=== PATIENT | female | born 1975 | race Caucasian/White ===

== ENCOUNTER 2017-12-21 21:06 | Emergency (ER) | payer MEDICAID, MEDICARE, OTHER ==
[~2017-12-21] VITALS: Ht 157.5 cm; Wt 91.3 kg
[2017-12-21] MEDS ORDERED: LORazepam 1MG TABLET ONE (21:40)
[2017-12-21] MEDS ORDERED: DIPH,PERTUSS(ACELL),TET VAC/PF 0.5 ML IM-VACC ONE ×2 (21:41→22:00)
[2017-12-21 21:48] LABS: BASOPHILS # (AUTO) 0.08 x10^3/uL (0-0.1); BASOPHILS % (AUTO) 1 % (0-1); EOSINOPHILS # (AUTO) 0.19 x10^3/uL (0-0.4); EOSINOPHILS % (AUTO) 2 % (1-7); LYMPHOCYTES # (AUTO) 2.12 x10^3/uL (1-3.4); LYMPHOCYTES % (AUTO) 24 % (22-44); MD NO; MEAN CORPUSCULAR HEMOGLOBIN 34.5 pg (27.0-34.8); MEAN CORPUSCULAR VOLUME 101.6 fL (80-100); MEAN PLATELET VOLUME 10.5 fL (7.4-10.4); MONOCYTES % (AUTO) 12 % (2-9); NEUTROPHILS # (AUTO) 5.29 x10^3/uL (1.8-6.8); NEUTROPHILS % (AUTO) 61 % (42-75); PLATELET COUNT 136 x10^3/uL (130-400); RED BLOOD COUNT 4.23 x10^6/uL (3.82-5.3); RED CELL DISTRIBUTION WIDTH 13.7 % (9.6-15.2)
[2017-12-21 21:54] VITALS: BP 112/75
[2017-12-21 22:00] LABS: ANION GAP 5 mmol/L (5-15); CALCIUM 8.2 mg/dL (8.5-10.1); CHLORIDE 113 mmol/L (98-107)
[2017-12-21] MEDS ORDERED: LORazepam 1MG TABLET PO ONE (22:00)
[2017-12-21 22:01] LABS: ALBUMIN 2.7 g/dL (3.4-5.0)
== END 2017-12-21 23:05 | disposition home or self-care (01) ==
LOC: ED 23:00
DX: S06.0X9A Concussion with loss of consciousness of unspecified duration, initial encounter (principal); S01.111A Laceration without foreign body of right eyelid and periocular area, initial encounter; G40.909 Epilepsy, unspecified, not intractable, without status epilepticus; W19.XXXA Unspecified fall, initial encounter; Y93.89 Activity, other specified; Y92.89 Other specified places as the place of occurrence of the external cause; Y99.8 Other external cause status
CPT/HCPCS: 12011; 36415; 70450; 80048; 80307; 82040; 84703; 85025; 90471; 90715; 93005; 99285

== ENCOUNTER 2018-06-03 17:20 | Emergency (ER) | payer MEDICAID, MEDICARE ==
[~2018-06-03] VITALS: Ht 157.5 cm; Wt 100.0 kg
[2018-06-03 18:36] VITALS: BP 118/72
== END 2018-06-03 18:48 | disposition home or self-care (01) ==
LOC: ED 18:25
DX: S00.93XA Contusion of unspecified part of head, initial encounter (principal); G40.909 Epilepsy, unspecified, not intractable, without status epilepticus; X58.XXXA Exposure to other specified factors, initial encounter; Y93.89 Activity, other specified; Y92.89 Other specified places as the place of occurrence of the external cause; Y99.8 Other external cause status
CPT/HCPCS: 70450; 99284

== ENCOUNTER 2019-02-04 14:46 | Emergency (ER) | payer MEDICARE ==
[~2019-02-04] VITALS: Ht 160 cm; Wt 114.0 kg
[2019-02-04] MEDS ORDERED: DIVA500T2 PO (14:58)
--- NOTE | 2019-02-04 15:03 | NUR ---
BIB EMS FOR SEIZURE IN THE SHOWER WITNESSED BY BROTHER WHO IS PATIENTS TONG HOOKER, "5 MIN OFF AND ON." EMS GAVE 2 L NS. IV ESTABLISHED IN FIELD. PT HAS HISTORY OF SEIZURES. LEFT BKA.
--- NOTE | 2019-02-04 15:22 | NUR ---
Nadir Moore [phone] will come molded goods spot picker patient if needed.
[2019-02-04 15:39] LABS: ALBUMIN 3.1 g/dL (3.4-5.0); ANION GAP 7 mmol/L (5-15); BASOPHILS # (AUTO) 0.05 x10^3/uL (0-0.1); BASOPHILS % (AUTO) 1 % (0-1); CALCIUM 8.7 mg/dL (8.5-10.1); CHLORIDE 113 mmol/L (98-107); CREATININE 0.95 mg/dL (0.55-1.02); EOSINOPHILS # (AUTO) 0.43 x10^3/uL (0-0.4); EOSINOPHILS % (AUTO) 5 % (1-7); LYMPHOCYTES # (AUTO) 1.84 x10^3/uL (1-3.4); LYMPHOCYTES % (AUTO) 21 % (22-44); MD NO; MEAN CORPUSCULAR HEMOGLOBIN 31.4 pg (27.0-34.8); MEAN CORPUSCULAR HGB CONC 33.3 g/dL (32.4-35.8); MEAN CORPUSCULAR VOLUME 94.4 fL (80-100); MEAN PLATELET VOLUME 10.8 fL (7.4-10.4); MONOCYTES % (AUTO) 9 % (2-9); NEUTROPHILS # (AUTO) 5.67 x10^3/uL (1.8-6.8); NEUTROPHILS % (AUTO) 65 % (42-75); PLATELET COUNT 167 x10^3/uL (130-400); RED BLOOD COUNT 4.82 x10^6/uL (3.82-5.3); RED CELL DISTRIBUTION WIDTH 13.6 % (9.6-15.2)
--- NOTE | 2019-02-04 16:44 | NUR ---
PT BROTHER WILL COME COTTAGE CHEESE MAKER FOR DC
[2019-02-04 17:06] VITALS: BP 144/80
== END 2019-02-04 17:12 | disposition home or self-care (01) ==
LOC: ED 17:00
DX: S06.9X1A Unspecified intracranial injury with loss of consciousness of 30 minutes or less, initial encounter (principal); G40.319 Generalized idiopathic epilepsy and epileptic syndromes, intractable, without status epilepticus; W18.00XA Striking against unspecified object with subsequent fall, initial encounter; Y93.89 Activity, other specified; Y92.89 Other specified places as the place of occurrence of the external cause; Y99.8 Other external cause status
CPT/HCPCS: 36415; 70450; 80048; 82040; 85025; 99283; 99284

== ENCOUNTER 2019-10-26 15:19 | Emergency (ER) | payer MEDICARE ==
[~2019-10-26] VITALS: Ht 160 cm; Wt 116.3 kg
[~2019-10-26 15:19] MED LIST: DIVA500T2 PO
--- NOTE | 2019-10-26 15:55 | NUR ---
assumed care of pt. pt presents c/o LLQ pain x1 day. 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 no urinary c/o. no other c/o. denies N/V. no family at bedside. pt to ambuklate to BR to attempt urine sample
[2019-10-26 15:56] LABS: BASOPHILS # (AUTO) 0.02 x10^3/uL (0-0.1); BASOPHILS % (AUTO) 0 % (0-1); EOSINOPHILS # (AUTO) 0.03 x10^3/uL (0-0.4); EOSINOPHILS % (AUTO) 0 % (1-7); LYMPHOCYTES # (AUTO) 0.94 x10^3/uL (1-3.4); LYMPHOCYTES % (AUTO) 8 % (22-44); MD NO; MEAN CORPUSCULAR HEMOGLOBIN 30.7 pg (27.0-34.8); MEAN CORPUSCULAR HGB CONC 32.8 g/dL (32.4-35.8); MEAN CORPUSCULAR VOLUME 93.6 fL (80-100); MEAN PLATELET VOLUME 10.4 fL (7.4-10.4); MONOCYTES # (AUTO) 0.32 x10^3/uL (0.2-0.8); MONOCYTES % (AUTO) 3 % (2-9); NEUTROPHILS # (AUTO) 9.87 x10^3/uL (1.8-6.8); NEUTROPHILS % (AUTO) 88 % (42-75); PLATELET COUNT 194 x10^3/uL (130-400); RED BLOOD COUNT 5.14 x10^6/uL (3.82-5.3)
[2019-10-26] MEDS ORDERED: ONDANSETRON 2MG/ML, 2ML IVPush ONE (16:00)
[2019-10-26] MEDS ORDERED: MORPHINE SULFATE 4 MG/ML, 1ML IVPush PRN (16:00)
[2019-10-26] MEDS ORDERED: SODIUM CHLORIDE FLUSH 10ML SYR IVF ONE (16:00)
[2019-10-26 16:05] LABS: ALANINE AMINOTRANSFERASE 24 U/L (12-78); ALBUMIN 3.4 g/dL (3.4-5.0); ANION GAP 9 mmol/L (5-15); CALCIUM 8.5 mg/dL (8.5-10.1); CHLORIDE 110 mmol/L (98-107); CREATININE 1.34 mg/dL (0.55-1.02)
[2019-10-26 16:09] LABS: ALKALINE PHOSPHATASE 100 U/L (45-117); BILIRUBIN,TOTAL 0.4 mg/dL (0.2-1.0); TOTAL PROTEIN 7.7 g/dL (6.4-8.2)
--- NOTE | 2019-10-26 16:10 | NUR ---
pt unable to provide urine sample at this time
[2019-10-26] MEDS ORDERED: ONDANSETRON 2MG/ML, 2ML ONE (16:22)
[2019-10-26] MEDS ORDERED: MORPHINE SULFATE 4 MG/ML, 1ML ONE (16:23)
--- NOTE | 2019-10-26 16:39 | NUR ---
pt has been medicated per order. positioning for comfort
--- NOTE | 2019-10-26 16:45 | NUR ---
pt reports some relief of pain after medications. reports that her pain has decreased to 7-8/10 from 10/10. resting in position of comfort
--- NOTE | 2019-10-26 16:50 | NUR ---
pt slightly hypoxicafter pain meds. feeling very sleepy. 2L O2 applied via NC
--- NOTE | 2019-10-26 16:58 | NUR ---
pt to CT scan via [facility]
[2019-10-26] MEDS ORDERED: OMNIPAQUE 350 MG/ML, 100ML BOTTLE ONE (17:18)
--- NOTE | 2019-10-26 17:28 | NUR ---
pt has eturned from CT scan. lights dimmed and warm blankets given for comfot. pt sleepy. reports decreased pain. pt reports that she is unable to provide urine sample at this time
--- NOTE | 2019-10-26 17:58 | NUR ---
minicath has been done and specimen srent. pt positioning for comfort
[2019-10-26 18:11] LABS: MICROSCOPIC INDICATED
[2019-10-26] MEDS ORDERED: KETOROLAC 30 MG/1 ML ONE (18:12)
[2019-10-26] MEDS ORDERED: KETOROLAC 30 MG/1 ML IVPush ONE (18:30)
[2019-10-26 18:35] LABS: CULTURE INDICATED? NO
--- NOTE | 2019-10-26 18:42 | NUR ---
chart up fo MD recheck.
--- NOTE | 2019-10-26 19:29 | NUR ---
attempted to D/C pt, Rx needs to be signed by imani
[2019-10-26 19:57] VITALS: BP 135/86
== END 2019-10-26 20:02 | disposition home or self-care (01) ==
LOC: ED 15:59
DX: N20.0 Calculus of kidney (principal); G40.909 Epilepsy, unspecified, not intractable, without status epilepticus
CPT/HCPCS: 36415; 74177; 80053; 81001; 83690; 84703; 85025; 96374; 96375; 99285; J1885; J2270; J2405; Q9967

== ENCOUNTER 2019-12-18 23:16 | Emergency (ER) | payer MEDICARE ==
[~2019-12-18] VITALS: Ht 160 cm; Wt 120.5 kg
[2019-12-18 23:52] LABS: BASOPHILS # (AUTO) 0.09 x10^3/uL (0-0.1); BASOPHILS % (AUTO) 1 % (0-1); EOSINOPHILS # (AUTO) 0.34 x10^3/uL (0-0.4); EOSINOPHILS % (AUTO) 3 % (1-7); LYMPHOCYTES # (AUTO) 2.39 x10^3/uL (1-3.4); LYMPHOCYTES % (AUTO) 22 % (22-44); MD NO; MEAN CORPUSCULAR HEMOGLOBIN 30.3 pg (27.0-34.8); MEAN CORPUSCULAR HGB CONC 32.8 g/dL (32.4-35.8); MEAN CORPUSCULAR VOLUME 92.5 fL (80-100); MONOCYTES # (AUTO) 1.03 x10^3/uL (0.2-0.8); MONOCYTES % (AUTO) 10 % (2-9); NEUTROPHILS # (AUTO) 6.93 x10^3/uL (1.8-6.8); NEUTROPHILS % (AUTO) 64 % (42-75); PLATELET COUNT 187 x10^3/uL (130-400); RED BLOOD COUNT 4.89 x10^6/uL (3.82-5.3); RED CELL DISTRIBUTION WIDTH 14.2 % (9.6-15.2)
[2019-12-18 23:56] VITALS: BP 125/87
[2019-12-18 23:56] LABS: ALBUMIN 3.1 g/dL (3.4-5.0); ANION GAP 8 mmol/L (5-15); CALCIUM 8.1 mg/dL (8.5-10.1); CHLORIDE 110 mmol/L (98-107)
[2019-12-18 23:57] LABS: CREATININE 1.04 mg/dL (0.55-1.02)
--- NOTE | 2019-12-18 23:57 | NUR ---
PT RESTING AND DENIES CURRENT NEEDS AT THIS TIME. NO SEIZURE LIKE ACITIVITY WHILE IN ED.
--- NOTE | 2019-12-19 00:32 | NUR ---
AMBULATED PT. STEADY GAIT, SAYS SHE "FEELS GOOD"
--- NOTE | 2019-12-19 00:37 | NUR ---
PT AMBULATED WITH STEADY GAIT.
== END 2019-12-19 00:48 | disposition home or self-care (01) ==
LOC: ED 12-19 00:01
DX: G40.309 Generalized idiopathic epilepsy and epileptic syndromes, not intractable, without status epilepticus (principal); R51 Headache; R55 Syncope and collapse; R94.31 Abnormal electrocardiogram [ECG] [EKG]
CPT/HCPCS: 36415; 80048; 82040; 85025; 93005; 99284

== ENCOUNTER 2021-03-21 18:21 | Inpatient (IN) | payer MEDICARE ==
[~2021-03-21] VITALS: Ht 157.5 cm; Wt 123.2 kg
[2021-03-21 19:38] LABS: BASOPHILS % (AUTO) 1 % (0-1); EOSINOPHILS % (AUTO) 0 % (1-7); LYMPHOCYTES % (AUTO) 24 % (22-44); MEAN CORPUSCULAR HEMOGLOBIN 30.8 pg (27.0-34.8); MEAN CORPUSCULAR HGB CONC 33.4 g/dL (32.4-35.8); MEAN PLATELET VOLUME 9.3 fL (7.4-10.4); MONOCYTES % (AUTO) 18 % (2-9); NEUTROPHILS % (AUTO) 58 % (42-75); PLATELET COUNT 155 x10^3/uL (130-400); RED BLOOD COUNT 4.89 x10^6/uL (3.82-5.3); RED CELL DISTRIBUTION WIDTH 15.2 % (9.6-15.2)
[2021-03-21 19:49] LABS: ANION GAP 6 mmol/L (5-15); CALCIUM 8.1 mg/dL (8.5-10.1); CHLORIDE 109 mmol/L (98-107); CREATININE 0.74 mg/dL (0.55-1.02)
--- NOTE | 2021-03-21 20:41 | NUR ---
PT & MD AT BS FOREVAL. AWARE OF PLAN FOR XRAY, LABS & U/S C POSSIBILITY OF FLUID DRAINAGE. MD TO TO BS U/S PT STATES PAIN STARTED LAST NIGHT, DENIES ANY INJURY.
[2021-03-21] MEDS ORDERED: MORPHINE SULFATE 4 MG/ML, 1ML ONE (20:59)
[2021-03-21] MEDS ORDERED: MORPHINE SULFATE 4 MG/ML, 1ML IVPush PRN (21:00)
[2021-03-21] MEDS ORDERED: AMPICILLIN/SULBACTAM 3 GM in SODIUM CHLORIDE 0.9% 100 ML IV ONE (21:00)
[2021-03-21] MEDS ORDERED: ONDANSETRON 2MG/ML, 2ML IVPush ONE (21:00)
[2021-03-21] MEDS ORDERED: SODIUM CHLORIDE 0.9% 1,000ML IVBOLUS ONE (21:00)
[2021-03-21] MEDS ORDERED: ONDANSETRON 2MG/ML, 2ML ONE (21:04)
--- NOTE | 2021-03-21 21:12 | NUR ---
PT MEDICATED PER EMAR FOR POSSIBLE INFECTION AND PAIN/NAUSEA. BP/SPO2 MONITORING IN PLACE.
[2021-03-21] MEDS ORDERED: VANCOMYCIN PER PHARMACY MC PRN (22:00)
[2021-03-21] MEDS ORDERED: LIDOCAINE-MPF 1%, 5ML INFIL ONE (22:30)
[2021-03-21] MEDS ORDERED: VANCOMYCIN 2,500 MG in SODIUM CHLORIDE 0.9% 500 ML IV ONE (22:30)
[2021-03-21] MEDS ORDERED: LIDOCAINE-MPF 1%, 5ML ONE ×2 (22:32→23:22)
--- NOTE | 2021-03-21 22:35 | NUR ---
NO S/S OF ABX RXN NOTED. SECOND ABX INITIATED. I&D SET UP AT BEDSIDE. POC IS ADMIT, PT AWARE AND DEMONSTRATES UNDERSTANDING.
--- NOTE | 2021-03-21 23:30 | NUR ---
ERP AT BEDSIDE FOR LLE NEEDLE ASPIRATION. ASPIRATE COLLECTED AND WALKED TO LAB BY RN. ABX CONTINUE TO INFUSE, NO S/S OF RXN NOTED.
--- NOTE | 2021-03-21 23:41 | NUR ---
PT EXPRESSING CONCERN THAT SHE HASN'T TAKEN HER SEIZURE MEDICATION THIS EVENING. SHE HOWEVER CANNOT GIVE THE MEDICATION NAME OR DOSAGE. PT REQUESTING RN CONTACT HER BROTHER TO NOTIFY HIM OF POC AND REQUEST MED LIST, BUT CANNOT RECALL HIS PHONE NUMBER. CALL MADE TO REGISTRATION FOR ASSISTANCE IN OBTAINING FAMILY'S CONTACT INFORMATION.
[2021-03-21] MEDS ORDERED: LAMO200T49 PO (23:50)
--- NOTE | 2021-03-21 23:51 | NUR ---
BROTHER SERENITY SMALLS PHONE NUMBER: [phone]. BROTHER ABLE TO PROVIDE PT'S CORRENT SEIZURE MEDICATIONS/DOSAGES. MED REC UPDATED.
[2021-03-22] MEDS ORDERED: BISACODYL 10 MG SUPP PR PRN (00:30)
[2021-03-22] MEDS ORDERED: ONDANSETRON 2MG/ML, 2ML IVPush PRN ×2 (00:30→11:30)
[2021-03-22] MEDS ORDERED: VANCOMYCIN PER PHARMACY MC PRN (00:30)
[2021-03-22] MEDS ORDERED: ACETAMINOPHEN 325 MG TABLET PO PRN ×2 (00:30→11:30)
[2021-03-22] MEDS ORDERED: PHARMACOKINETIC MONITORING MC PRN (01:00)
[2021-03-22] MEDS ORDERED: PHARMACOKINETIC CONSULTATION MC ONE (01:00)
[2021-03-22] MEDS: NS + 20MEQ KCL 1,000 ML IV SCH ×2 (01:23→16:01)
[2021-03-22] MEDS ORDERED: LAMOTRIGINE 200 MG TABLET PO ONE (02:00)
[2021-03-22 02:04] VITALS: BP 119/61
[2021-03-22] MEDS: morphine SULFATE 10 MG/ML, 1ML IVPush PRN ×2 (02:49→21:13)
[2021-03-22] MEDS: AMPICILLIN/SULBACTAM 3 GM in SODIUM CHLORIDE 0.9% 100 ML IV SCH ×3 (02:55→16:00)
[2021-03-22 06:16] LABS: BASOPHILS % (AUTO) 0 % (0-1); EOSINOPHILS % (AUTO) 0 % (1-7); LYMPHOCYTES % (AUTO) 24 % (22-44); MEAN CORPUSCULAR HEMOGLOBIN 30.5 pg (27.0-34.8); MEAN CORPUSCULAR HGB CONC 33.1 g/dL (32.4-35.8); MEAN PLATELET VOLUME 9.7 fL (7.4-10.4); MONOCYTES % (AUTO) 12 % (2-9); NEUTROPHILS % (AUTO) 63 % (42-75); PLATELET COUNT 150 x10^3/uL (130-400); RED CELL DISTRIBUTION WIDTH 15.1 % (9.6-15.2)
[2021-03-22 06:26] LABS: ANION GAP 6 mmol/L (5-15); CALCIUM 7.9 mg/dL (8.5-10.1); CHLORIDE 110 mmol/L (98-107)
[2021-03-22 06:28] LABS: CREATININE 0.68 mg/dL (0.55-1.02)
[2021-03-22 07:48] VITALS: BP 104/69
[2021-03-22] MEDS: LAMOTRIGINE 200 MG TABLET PO SCH ×2 (08:49→20:43)
[2021-03-22] MEDS ORDERED: POTASSIUM CHLORIDE 20 MEQ TAB.ER.PRT PO ONE (09:30)
[2021-03-22] MEDS: VANCOMYCIN 2,000 MG in SODIUM CHLORIDE 0.9% 500 ML IV SCH ×2 (11:15→23:37)
[2021-03-22] MEDS ORDERED: FENTANYL PF 100 MCG/2ML IV PRN (11:30)
[2021-03-22] MEDS ORDERED: PROMETHAZINE 25 MG/ML, 1ML IVPush PRN (11:30)
[2021-03-22] MEDS ORDERED: HYDROmorphone 1 MG/ML, 1ML INJ IVPush PRN (11:30)
[2021-03-22] MEDS ORDERED: OXYcodone 5 MG/5 ML ORAL.SOL UDC PO PRN (11:30)
[2021-03-22] MEDS ORDERED: hydrALAzine 20 MG/ML, 1ML IV PRN (11:30)
[2021-03-22] MEDS ORDERED: LABETALOL 5MG/ML, 20ML IV PRN (11:30)
[2021-03-22] MEDS ORDERED: EPHEDRINE 50 MG/ML, 1ML IVPush PRN (11:30)
[2021-03-22 14:18] VITALS: BP 108/72
[2021-03-22] MEDS ORDERED: POTASSIUM CHLORIDE 20 MEQ TAB.ER.PRT ONE (15:58)
[2021-03-22 20:10] VITALS: BP 105/71
[2021-03-23] MEDS: morphine SULFATE 10 MG/ML, 1ML IVPush PRN ×2 (00:30→23:34)
[2021-03-23 00:47] VITALS: BP 122/72
[2021-03-23] MEDS: AMPICILLIN/SULBACTAM 3 GM in SODIUM CHLORIDE 0.9% 100 ML IV SCH ×4 (03:27→21:32)
[2021-03-23 06:54] LABS: BASOPHILS % (AUTO) 0 % (0-1); EOSINOPHILS % (AUTO) 1 % (1-7); LYMPHOCYTES % (AUTO) 22 % (22-44); MEAN CORPUSCULAR HEMOGLOBIN 30.1 pg (27.0-34.8); MEAN CORPUSCULAR HGB CONC 32.7 g/dL (32.4-35.8); MEAN PLATELET VOLUME 9.4 fL (7.4-10.4); MONOCYTES % (AUTO) 12 % (2-9); NEUTROPHILS % (AUTO) 65 % (42-75); PLATELET COUNT 145 x10^3/uL (130-400); RED BLOOD COUNT 4.33 x10^6/uL (3.82-5.3); RED CELL DISTRIBUTION WIDTH 14.8 % (9.6-15.2)
[2021-03-23 07:02] LABS: ANION GAP 7 mmol/L (5-15); CALCIUM 7.7 mg/dL (8.5-10.1); CHLORIDE 112 mmol/L (98-107); CREATININE 0.59 mg/dL (0.55-1.02)
[2021-03-23 07:58] VITALS: BP 125/61
[2021-03-23] MEDS: LAMOTRIGINE 200 MG TABLET PO SCH ×2 (10:21→21:31)
[2021-03-23 12:15] VITALS: BP 128/80
[2021-03-23] MEDS: VANCOMYCIN 2,000 MG in SODIUM CHLORIDE 0.9% 500 ML IV SCH ×2 (12:47→23:33)
[2021-03-23] MEDS: NS + 20MEQ KCL 1,000 ML IV SCH (15:24)
[2021-03-23 18:32] VITALS: BP 142/84
[2021-03-24 00:58] VITALS: BP 110/70
[2021-03-24] MEDS: AMPICILLIN/SULBACTAM 3 GM in SODIUM CHLORIDE 0.9% 100 ML IV SCH ×3 (03:20→15:45)
[2021-03-24 06:17] LABS: BASOPHILS % (AUTO) 0 % (0-1); EOSINOPHILS % (AUTO) 2 % (1-7); LYMPHOCYTES % (AUTO) 24 % (22-44); MEAN CORPUSCULAR HEMOGLOBIN 30.2 pg (27.0-34.8); MEAN CORPUSCULAR HGB CONC 32.7 g/dL (32.4-35.8); MEAN PLATELET VOLUME 9.2 fL (7.4-10.4); MONOCYTES % (AUTO) 11 % (2-9); NEUTROPHILS % (AUTO) 62 % (42-75); PLATELET COUNT 150 x10^3/uL (130-400); RED CELL DISTRIBUTION WIDTH 15.1 % (9.6-15.2)
[2021-03-24 06:21] LABS: CHLORIDE 109 mmol/L (98-107)
[2021-03-24 06:28] LABS: ANION GAP 5 mmol/L (5-15); CALCIUM 7.8 mg/dL (8.5-10.1); CREATININE 0.48 mg/dL (0.55-1.02)
[2021-03-24 07:30] VITALS: BP 127/82
[2021-03-24] MEDS: LAMOTRIGINE 200 MG TABLET PO SCH ×2 (08:24→20:38)
[2021-03-24] MEDS: NS + 20MEQ KCL 1,000 ML IV SCH (08:24)
[2021-03-24 13:18] VITALS: BP 128/80
[2021-03-24] MEDS ORDERED: GADOTERATE 5 MMOL/10ML SYR ONE (18:12)
[2021-03-24] MEDS ORDERED: GADOTERATE 7.5 MMOL/15ML SYR ONE (18:12)
[2021-03-24 19:07] VITALS: BP 129/76
[2021-03-24] MEDS ORDERED: FENTANYL PF 250 MCG/5ML ONE (22:44)
[2021-03-24] MEDS ORDERED: PROPOFOL 10 MG/ML, 20ML ONE (22:48)
[2021-03-24] MEDS ORDERED: SUCCINYLCHOLINE 20 MG/ML, 10ML ONE (22:48)
[2021-03-24] MEDS ORDERED: ONDANSETRON 2MG/ML, 2ML ONE (22:48)
[2021-03-24] MEDS ORDERED: DEXAMETHASONE 4 MG/ML, 1ML ONE ×2 (22:48)
[2021-03-24] MEDS ORDERED: MEPERIDINE/PF 25MG/0.5ML IVPush PRN (23:00)
[2021-03-24] MEDS ORDERED: LABETALOL 5MG/ML, 20ML IV PRN (23:00)
[2021-03-24] MEDS ORDERED: FENTANYL PF 100 MCG/2ML IV PRN (23:00)
[2021-03-24] MEDS ORDERED: ONDANSETRON 2MG/ML, 2ML IVPush PRN (23:00)
[2021-03-24] MEDS ORDERED: OXYcodone 5 MG/5 ML ORAL.SOL UDC PO PRN (23:00)
[2021-03-24] MEDS ORDERED: hydrALAzine 20 MG/ML, 1ML IV PRN (23:00)
[2021-03-24] MEDS ORDERED: PROMETHAZINE 25 MG/ML, 1ML IVPush PRN (23:00)
[2021-03-24] MEDS ORDERED: HYDROmorphone 1 MG/ML, 1ML INJ IVPush PRN (23:00)
[2021-03-24] MEDS ORDERED: FENTANYL PF 100 MCG/2ML ONE (23:29)
[2021-03-25] MEDS: AMPICILLIN/SULBACTAM 3 GM in SODIUM CHLORIDE 0.9% 100 ML IV SCH ×5 (00:51→21:56)
[2021-03-25 00:54] VITALS: BP 128/78
[2021-03-25] MEDS: morphine SULFATE 10 MG/ML, 1ML IVPush PRN ×2 (02:44→22:56)
[2021-03-25 07:15] VITALS: BP 121/72
[2021-03-25] MEDS: LAMOTRIGINE 200 MG TABLET PO SCH ×2 (10:42→20:22)
[2021-03-25] MEDS: NS + 20MEQ KCL 1,000 ML IV SCH (11:31)
[2021-03-25 16:17] VITALS: BP 113/66
[2021-03-25 20:39] VITALS: BP 142/66
[2021-03-26 01:41] VITALS: BP 104/63
[2021-03-26] MEDS: NS + 20MEQ KCL 1,000 ML IV SCH (01:43)
[2021-03-26] MEDS: AMPICILLIN/SULBACTAM 3 GM in SODIUM CHLORIDE 0.9% 100 ML IV SCH ×3 (04:44→18:38)
[2021-03-26 06:44] LABS: BASOPHILS % (AUTO) 0 % (0-1); EOSINOPHILS % (AUTO) 0 % (1-7); LYMPHOCYTES % (AUTO) 21 % (22-44); MEAN CORPUSCULAR HEMOGLOBIN 30.5 pg (27.0-34.8); MEAN CORPUSCULAR HGB CONC 32.9 g/dL (32.4-35.8); MEAN PLATELET VOLUME 9.1 fL (7.4-10.4); MONOCYTES % (AUTO) 14 % (2-9); NEUTROPHILS % (AUTO) 66 % (42-75); PLATELET COUNT 184 x10^3/uL (130-400); RED BLOOD COUNT 3.94 x10^6/uL (3.82-5.3); RED CELL DISTRIBUTION WIDTH 14.5 % (9.6-15.2)
[2021-03-26 06:47] LABS: ANION GAP 3 mmol/L (5-15); CALCIUM 7.9 mg/dL (8.5-10.1); CHLORIDE 112 mmol/L (98-107)
[2021-03-26 06:48] LABS: CREATININE 0.54 mg/dL (0.55-1.02)
[2021-03-26 07:32] VITALS: BP 137/81
[2021-03-26] MEDS: LAMOTRIGINE 200 MG TABLET PO SCH ×2 (10:44→20:30)
[2021-03-26 12:17] VITALS: BP 126/72
[2021-03-26] MEDS ORDERED: OMNIPAQUE 350 MG/ML, 100ML BOTTLE ONE (15:15)
[2021-03-26] MEDS ORDERED: REMDESIVIR 200 MG in SODIUM CHLORIDE 0.9% 250 ML IVPB ONE (18:30)
[2021-03-26] MEDS: ENOXAPARIN 120MG/0.8ML SQ SCH (18:39)
[2021-03-26] MEDS: DEXAMETHASONE 4 MG/ML, 5ML IVPush SCH (18:39)
[2021-03-26 19:29] VITALS: BP 146/73
[2021-03-26] MEDS: AZITHROMYCIN 500 MG in SODIUM CHLORIDE 0.9% 250 ML IV SCH (20:29)
[2021-03-27] MEDS: AMPICILLIN/SULBACTAM 3 GM in SODIUM CHLORIDE 0.9% 100 ML IV SCH ×4 (00:47→18:33)
[2021-03-27] MEDS: NS + 20MEQ KCL 1,000 ML IV SCH ×2 (00:48→16:00)
[2021-03-27 00:51] VITALS: BP 122/73
[2021-03-27 05:24] LABS: BASOPHILS % (AUTO) 1 % (0-1); EOSINOPHILS % (AUTO) 0 % (1-7); LYMPHOCYTES % (AUTO) 44 % (22-44); MEAN CORPUSCULAR HGB CONC 32.8 g/dL (32.4-35.8); MEAN PLATELET VOLUME 9.4 fL (7.4-10.4); MONOCYTES % (AUTO) 16 % (2-9); NEUTROPHILS % (AUTO) 39 % (42-75); PLATELET COUNT 181 x10^3/uL (130-400); RED BLOOD COUNT 4.05 x10^6/uL (3.82-5.3); RED CELL DISTRIBUTION WIDTH 14.7 % (9.6-15.2)
[2021-03-27 05:39] LABS: CHLORIDE 104 mmol/L (98-107)
[2021-03-27 05:48] LABS: ALANINE AMINOTRANSFERASE 49 U/L (12-78); ALBUMIN 2.1 g/dL (3.4-5.0); ALKALINE PHOSPHATASE 46 U/L (45-117); ANION GAP 4 mmol/L (5-15); BILIRUBIN,TOTAL 0.4 mg/dL (0.2-1.0); CALCIUM 7.7 mg/dL (8.5-10.1); CREATINE KINASE, TOTAL 340 U/L (26-192); TOTAL PROTEIN 6.1 g/dL (6.4-8.2)
[2021-03-27] MEDS: ENOXAPARIN 120MG/0.8ML SQ SCH ×2 (06:17→19:38)
[2021-03-27 07:41] VITALS: BP 129/84
[2021-03-27] MEDS: DEXAMETHASONE 4 MG/ML, 5ML IVPush SCH (09:00)
[2021-03-27] MEDS ORDERED: DEXAMETHASONE 4 MG/ML, 1ML ONE (09:08)
[2021-03-27] MEDS: LAMOTRIGINE 200 MG TABLET PO SCH ×2 (09:22→19:38)
[2021-03-27] MEDS: morphine SULFATE 10 MG/ML, 1ML IVPush PRN ×2 (10:11→22:17)
[2021-03-27 12:12] VITALS: BP 142/85
[2021-03-27] MEDS ORDERED: FUROSEMIDE 40 MG/4 ML IV ONE (18:00)
[2021-03-27] MEDS ORDERED: POTASSIUM CHLORIDE 20 MEQ TAB.ER.PRT PO ONE (18:00)
[2021-03-27] MEDS ORDERED: REMDESIVIR 100 MG in SODIUM CHLORIDE 0.9% 250 ML IVPB SCH (18:30)
[2021-03-27 19:03] VITALS: BP 139/90
[2021-03-27] MEDS: AZITHROMYCIN 500 MG in SODIUM CHLORIDE 0.9% 250 ML IV SCH (19:38)
[2021-03-27] MEDS: REMDESIVIR 100 MG in SODIUM CHLORIDE 0.9% 250 ML IVPB SCH (22:16)
[2021-03-28] MEDS: AMPICILLIN/SULBACTAM 3 GM in SODIUM CHLORIDE 0.9% 100 ML IV SCH ×5 (00:04→23:54)
[2021-03-28 00:39] VITALS: BP 132/78
[2021-03-28] MEDS: REMDESIVIR 100 MG in SODIUM CHLORIDE 0.9% 250 ML IVPB SCH (00:44)
[2021-03-28 06:52] VITALS: BP 134/84
[2021-03-28] MEDS: DEXAMETHASONE 4 MG/ML, 5ML IVPush SCH (09:00)
[2021-03-28 09:08] LABS: BASOPHILS % (AUTO) 0 % (0-1); EOSINOPHILS % (AUTO) 0 % (1-7); LYMPHOCYTES % (AUTO) 34 % (22-44); MEAN CORPUSCULAR HGB CONC 32.8 g/dL (32.4-35.8); MEAN PLATELET VOLUME 9.6 fL (7.4-10.4); MONOCYTES % (AUTO) 16 % (2-9); NEUTROPHILS % (AUTO) 50 % (42-75); PLATELET COUNT 228 x10^3/uL (130-400); RED BLOOD COUNT 4.39 x10^6/uL (3.82-5.3); RED CELL DISTRIBUTION WIDTH 14.2 % (9.6-15.2)
[2021-03-28 09:19] LABS: ALANINE AMINOTRANSFERASE 50 U/L (12-78); ALBUMIN 2.3 g/dL (3.4-5.0); ANION GAP 5 mmol/L (5-15); CALCIUM 8.4 mg/dL (8.5-10.1); CHLORIDE 105 mmol/L (98-107)
[2021-03-28 09:22] LABS: ALKALINE PHOSPHATASE 50 U/L (45-117); BILIRUBIN,TOTAL 0.4 mg/dL (0.2-1.0); CREATININE 0.52 mg/dL (0.55-1.02); TOTAL PROTEIN 6.8 g/dL (6.4-8.2)
[2021-03-28] MEDS ORDERED: DEXAMETHASONE 4 MG/ML, 1ML ONE (09:34)
[2021-03-28] MEDS: ENOXAPARIN 120MG/0.8ML SQ SCH ×2 (09:53→20:47)
[2021-03-28] MEDS: CHOLECALCIFEROL 1,000 UNIT TABLET PO SCH (10:07)
[2021-03-28] MEDS: LAMOTRIGINE 200 MG TABLET PO SCH ×2 (10:08→20:47)
[2021-03-28] MEDS: THIAMINE 100MG TABLET PO SCH (10:08)
[2021-03-28] MEDS: ZINC SULFATE 220 MG CAPSULE PO SCH (10:08)
[2021-03-28] MEDS: ASCORBIC ACID 250 MG TAB PO SCH ×2 (10:12→17:29)
[2021-03-28 15:00] VITALS: BP 112/64
[2021-03-28] MEDS: FUROSEMIDE 40 MG/4 ML IV SCH (17:29)
[2021-03-28 19:12] VITALS: BP 144/77
[2021-03-29] MEDS: morphine SULFATE 10 MG/ML, 1ML IVPush PRN ×2 (00:34→12:07)
[2021-03-29] MEDS: REMDESIVIR 100 MG in SODIUM CHLORIDE 0.9% 250 ML IVPB SCH (00:34)
[2021-03-29 03:30] VITALS: BP 134/73
[2021-03-29] MEDS: AMPICILLIN/SULBACTAM 3 GM in SODIUM CHLORIDE 0.9% 100 ML IV SCH ×3 (05:33→18:02)
[2021-03-29 06:32] LABS: ALBUMIN 2.3 g/dL (3.4-5.0); ANION GAP 7 mmol/L (5-15); CALCIUM 8.4 mg/dL (8.5-10.1); CHLORIDE 103 mmol/L (98-107); MEAN CORPUSCULAR HEMOGLOBIN 30.5 pg (27.0-34.8); MEAN CORPUSCULAR HGB CONC 33.5 g/dL (32.4-35.8); MEAN PLATELET VOLUME 10.4 fL (7.4-10.4); PLATELET COUNT 220 x10^3/uL (130-400); RED BLOOD COUNT 4.44 x10^6/uL (3.82-5.3); RED CELL DISTRIBUTION WIDTH 14.4 % (9.6-15.2)
[2021-03-29 06:37] LABS: ALANINE AMINOTRANSFERASE 55 U/L (12-78); ALKALINE PHOSPHATASE 49 U/L (45-117); BILIRUBIN,TOTAL 0.3 mg/dL (0.2-1.0); CREATININE 0.65 mg/dL (0.55-1.02); TOTAL PROTEIN 6.6 g/dL (6.4-8.2)
[2021-03-29 06:59] LABS: BANDS%(MANUAL) 2 % (0-7); LYMPH#(MANUAL) 1.96 x10^3/uL (1-3.4); LYMPHS% (MANUAL) 40 % (22-44); METAMYELOCYTES# (MANUAL) 0.05 x10^3/uL (0-0); METAMYELOCYTES% (MANUAL) 1 % (0-1); MONOS#(MANUAL) 0.74 x10^3/uL (0.3-2.7); MONOS% (MANUAL) 15 % (2-9); SEG#(MANUAL) 2.06 x10^3/uL (1.8-6.8); SEGS% (MANUAL) 42 % (42-75)
[2021-03-29 07:00] LABS: <PLATELET ESTIMATE> ADEQUATE; <PLT MORPHOLOGY> NORMAL PLT MORPH; <RBC MORPHOLOGY> NORMAL
[2021-03-29] MEDS: FUROSEMIDE 40 MG/4 ML IV SCH ×2 (08:10→17:09)
[2021-03-29] MEDS: ASCORBIC ACID 250 MG TAB PO SCH ×2 (08:11→17:08)
[2021-03-29 08:30] VITALS: BP 125/79
[2021-03-29] MEDS ORDERED: DEXAMETHASONE 4 MG/ML, 1ML ONE ×2 (08:55→08:56)
[2021-03-29] MEDS: DEXAMETHASONE 4 MG/ML, 5ML IVPush SCH (09:00)
[2021-03-29] MEDS: ENOXAPARIN 120MG/0.8ML SQ SCH ×2 (09:11→21:27)
[2021-03-29] MEDS: ZINC SULFATE 220 MG CAPSULE PO SCH (09:12)
[2021-03-29] MEDS: CHOLECALCIFEROL 1,000 UNIT TABLET PO SCH (09:12)
[2021-03-29] MEDS: LAMOTRIGINE 200 MG TABLET PO SCH ×2 (09:13→21:27)
[2021-03-29] MEDS: THIAMINE 100MG TABLET PO SCH (09:13)
[2021-03-29] MEDS ORDERED: LORazepam 2 MG/ML, 1ML IVPush PRN (13:00)
[2021-03-29 15:18] VITALS: BP 133/85
[2021-03-29 18:57] VITALS: BP 126/85
[2021-03-30 00:15] VITALS: BP 116/79
[2021-03-30] MEDS: AMPICILLIN/SULBACTAM 3 GM in SODIUM CHLORIDE 0.9% 100 ML IV SCH ×4 (00:53→17:53)
[2021-03-30] MEDS: REMDESIVIR 100 MG in SODIUM CHLORIDE 0.9% 250 ML IVPB SCH (01:43)
[2021-03-30 05:35] LABS: BASOPHILS % (AUTO) 0 % (0-1); EOSINOPHILS % (AUTO) 0 % (1-7); LYMPHOCYTES % (AUTO) 40 % (22-44); MEAN CORPUSCULAR HEMOGLOBIN 30.4 pg (27.0-34.8); MEAN CORPUSCULAR HGB CONC 33.4 g/dL (32.4-35.8); MEAN PLATELET VOLUME 10.3 fL (7.4-10.4); MONOCYTES % (AUTO) 15 % (2-9); NEUTROPHILS % (AUTO) 44 % (42-75); PLATELET COUNT 280 x10^3/uL (130-400); RED BLOOD COUNT 4.56 x10^6/uL (3.82-5.3); RED CELL DISTRIBUTION WIDTH 14.1 % (9.6-15.2)
[2021-03-30] MEDS ORDERED: BACLOFEN 10 MG TABLET ONE (05:40)
[2021-03-30 05:43] LABS: ALANINE AMINOTRANSFERASE 97 U/L (12-78); ALBUMIN 2.3 g/dL (3.4-5.0); ANION GAP 4 mmol/L (5-15); CALCIUM 8.6 mg/dL (8.5-10.1); CHLORIDE 100 mmol/L (98-107)
[2021-03-30 05:46] LABS: ALKALINE PHOSPHATASE 52 U/L (45-117); BILIRUBIN,TOTAL 0.4 mg/dL (0.2-1.0); CREATININE 0.67 mg/dL (0.55-1.02); TOTAL PROTEIN 6.8 g/dL (6.4-8.2)
[2021-03-30 08:10] VITALS: BP 120/76
[2021-03-30] MEDS: ZINC SULFATE 220 MG CAPSULE PO SCH (08:22)
[2021-03-30] MEDS: FUROSEMIDE 40 MG/4 ML IV SCH ×2 (08:22→17:47)
[2021-03-30] MEDS: LAMOTRIGINE 200 MG TABLET PO SCH (08:22)
[2021-03-30] MEDS: ASCORBIC ACID 250 MG TAB PO SCH ×2 (08:23→17:49)
[2021-03-30] MEDS: CHOLECALCIFEROL 1,000 UNIT TABLET PO SCH (08:23)
[2021-03-30] MEDS: ENOXAPARIN 120MG/0.8ML SQ SCH (08:24)
[2021-03-30] MEDS: THIAMINE 100MG TABLET PO SCH (08:24)
[2021-03-30] MEDS ORDERED: DEXAMETHASONE 4 MG/ML, 1ML ONE (08:34)
[2021-03-30] MEDS: DEXAMETHASONE 4 MG/ML, 5ML IVPush SCH (08:37)
[2021-03-30 12:17] VITALS: BP 120/78
[2021-03-30 20:21] VITALS: BP 144/81
[2021-03-31 00:12] VITALS: BP 123/82
[2021-03-31] MEDS: LAMOTRIGINE 200 MG TABLET PO SCH ×3 (00:33→20:27)
[2021-03-31] MEDS: ENOXAPARIN 120MG/0.8ML SQ SCH ×3 (00:33→20:27)
[2021-03-31] MEDS: AMPICILLIN/SULBACTAM 3 GM in SODIUM CHLORIDE 0.9% 100 ML IV SCH ×4 (00:33→20:34)
[2021-03-31 05:49] LABS: BASOPHILS % (AUTO) 0 % (0-1); EOSINOPHILS % (AUTO) 0 % (1-7); LYMPHOCYTES % (AUTO) 39 % (22-44); MEAN CORPUSCULAR HEMOGLOBIN 30.3 pg (27.0-34.8); MEAN CORPUSCULAR HGB CONC 33.5 g/dL (32.4-35.8); MEAN PLATELET VOLUME 10.2 fL (7.4-10.4); MONOCYTES % (AUTO) 17 % (2-9); NEUTROPHILS % (AUTO) 44 % (42-75); PLATELET COUNT 296 x10^3/uL (130-400); RED BLOOD COUNT 4.67 x10^6/uL (3.82-5.3); RED CELL DISTRIBUTION WIDTH 14.2 % (9.6-15.2)
[2021-03-31 06:00] LABS: CHLORIDE 97 mmol/L (98-107)
[2021-03-31 06:04] LABS: ANION GAP 22 mmol/L (5-15); CREATININE 0.65 mg/dL (0.55-1.02)
[2021-03-31 06:16] LABS: CALCIUM 8.8 mg/dL (8.5-10.1)
[2021-03-31 07:44] VITALS: BP 127/75
[2021-03-31] MEDS: CHOLECALCIFEROL 1,000 UNIT TABLET PO SCH (09:05)
[2021-03-31] MEDS: THIAMINE 100MG TABLET PO SCH (09:05)
[2021-03-31] MEDS: FUROSEMIDE 40 MG/4 ML IV SCH ×2 (09:05→17:35)
[2021-03-31] MEDS: DEXAMETHASONE 4 MG/ML, 5ML IVPush SCH (09:05)
[2021-03-31] MEDS: ZINC SULFATE 220 MG CAPSULE PO SCH (09:05)
[2021-03-31] MEDS: ASCORBIC ACID 250 MG TAB PO SCH ×2 (09:05→17:35)
[2021-03-31] MEDS: MORPHINE SULFATE 4 MG/ML, 1ML IVPush PRN (11:14)
[2021-03-31 13:26] VITALS: BP 143/79
[2021-03-31 19:09] VITALS: BP 134/81
[2021-04-01 00:19] VITALS: BP 123/81
[2021-04-01] MEDS: AMPICILLIN/SULBACTAM 3 GM in SODIUM CHLORIDE 0.9% 100 ML IV SCH ×4 (03:23→21:56)
[2021-04-01 06:28] LABS: CHLORIDE 102 mmol/L (98-107)
[2021-04-01 06:41] LABS: ALANINE AMINOTRANSFERASE 141 U/L (12-78); ALBUMIN 2.8 g/dL (3.4-5.0); ALKALINE PHOSPHATASE 65 U/L (45-117); ANION GAP 8 mmol/L (5-15); BILIRUBIN,TOTAL 0.4 mg/dL (0.2-1.0); CALCIUM 9.1 mg/dL (8.5-10.1); CREATININE 0.64 mg/dL (0.55-1.02); TOTAL PROTEIN 7.3 g/dL (6.4-8.2)
[2021-04-01 09:08] VITALS: BP 116/79
[2021-04-01] MEDS: THIAMINE 100MG TABLET PO SCH (09:31)
[2021-04-01] MEDS: ASCORBIC ACID 250 MG TAB PO SCH ×2 (09:31→17:10)
[2021-04-01] MEDS: CHOLECALCIFEROL 1,000 UNIT TABLET PO SCH (09:31)
[2021-04-01] MEDS: LAMOTRIGINE 200 MG TABLET PO SCH ×2 (09:32→22:26)
[2021-04-01] MEDS: DEXAMETHASONE 4 MG/ML, 5ML IVPush SCH (09:32)
[2021-04-01] MEDS: ENOXAPARIN 120MG/0.8ML SQ SCH ×2 (09:32→22:26)
[2021-04-01] MEDS: ZINC SULFATE 220 MG CAPSULE PO SCH (09:32)
[2021-04-01] MEDS: FUROSEMIDE 40 MG/4 ML IV SCH ×2 (09:33→17:10)
[2021-04-01 13:11] VITALS: BP 117/78
[2021-04-01 19:36] VITALS: BP 130/79
[2021-04-02 00:20] VITALS: BP 119/76
[2021-04-02] MEDS: AMPICILLIN/SULBACTAM 3 GM in SODIUM CHLORIDE 0.9% 100 ML IV SCH ×4 (04:37→22:37)
[2021-04-02 05:24] LABS: BASOPHILS % (AUTO) 0 % (0-1); EOSINOPHILS % (AUTO) 0 % (1-7); LYMPHOCYTES % (AUTO) 19 % (22-44); MEAN CORPUSCULAR HEMOGLOBIN 30.4 pg (27.0-34.8); MEAN CORPUSCULAR HGB CONC 33.2 g/dL (32.4-35.8); MEAN PLATELET VOLUME 10.9 fL (7.4-10.4); MONOCYTES % (AUTO) 10 % (2-9); NEUTROPHILS % (AUTO) 71 % (42-75); PLATELET COUNT 310 x10^3/uL (130-400); RED BLOOD COUNT 4.94 x10^6/uL (3.82-5.3); RED CELL DISTRIBUTION WIDTH 14.4 % (9.6-15.2)
[2021-04-02 05:39] LABS: CHLORIDE 102 mmol/L (98-107)
[2021-04-02 05:49] LABS: ALANINE AMINOTRANSFERASE 123 U/L (12-78); ALBUMIN 2.7 g/dL (3.4-5.0); ALKALINE PHOSPHATASE 65 U/L (45-117); ANION GAP 6 mmol/L (5-15); BILIRUBIN,TOTAL 0.5 mg/dL (0.2-1.0); CALCIUM 8.9 mg/dL (8.5-10.1); CREATININE 0.76 mg/dL (0.55-1.02); TOTAL PROTEIN 7.3 g/dL (6.4-8.2)
[2021-04-02] MEDS ORDERED: DEXAMETHASONE 4 MG/ML, 1ML ONE ×2 (07:42→07:46)
[2021-04-02] MEDS: ASCORBIC ACID 250 MG TAB PO SCH ×2 (08:04→16:24)
[2021-04-02] MEDS: ZINC SULFATE 220 MG CAPSULE PO SCH (08:04)
[2021-04-02] MEDS: LAMOTRIGINE 200 MG TABLET PO SCH ×2 (08:05→20:02)
[2021-04-02] MEDS: THIAMINE 100MG TABLET PO SCH (08:05)
[2021-04-02] MEDS: FUROSEMIDE 40 MG/4 ML IV SCH ×2 (08:05→16:24)
[2021-04-02] MEDS: ENOXAPARIN 120MG/0.8ML SQ SCH ×2 (08:08→20:03)
[2021-04-02] MEDS: DEXAMETHASONE 4 MG/ML, 5ML IVPush SCH (08:09)
[2021-04-02 08:28] VITALS: BP 125/79
[2021-04-02] MEDS: CHOLECALCIFEROL 1,000 UNIT TABLET PO SCH (10:30)
[2021-04-02 15:46] VITALS: BP 148/86
[2021-04-02 16:17] VITALS: BP 144/82
[2021-04-02 21:05] VITALS: BP 117/75
[2021-04-03 01:00] VITALS: BP 126/77
[2021-04-03] MEDS: AMPICILLIN/SULBACTAM 3 GM in SODIUM CHLORIDE 0.9% 100 ML IV SCH ×4 (04:39→23:29)
[2021-04-03] MEDS: FUROSEMIDE 40 MG/4 ML IV SCH ×2 (07:46→17:32)
[2021-04-03] MEDS: ASCORBIC ACID 250 MG TAB PO SCH ×2 (07:47→17:32)
[2021-04-03 08:00] VITALS: BP 124/83
[2021-04-03] MEDS: CHOLECALCIFEROL 1,000 UNIT TABLET PO SCH (09:00)
[2021-04-03] MEDS: DEXAMETHASONE 4 MG/ML, 5ML IVPush SCH (09:00)
[2021-04-03] MEDS ORDERED: DEXAMETHASONE 4 MG/ML, 1ML ONE (09:15)
[2021-04-03] MEDS: THIAMINE 100MG TABLET PO SCH (09:25)
[2021-04-03] MEDS: ZINC SULFATE 220 MG CAPSULE PO SCH (09:25)
[2021-04-03] MEDS: LAMOTRIGINE 200 MG TABLET PO SCH ×2 (09:25→21:09)
[2021-04-03] MEDS: ENOXAPARIN 120MG/0.8ML SQ SCH ×2 (09:28→21:09)
[2021-04-03 09:58] LABS: BASOPHILS % (AUTO) 0 % (0-1); EOSINOPHILS % (AUTO) 0 % (1-7); LYMPHOCYTES % (AUTO) 27 % (22-44); MEAN CORPUSCULAR HEMOGLOBIN 30.3 pg (27.0-34.8); MEAN CORPUSCULAR HGB CONC 33.2 g/dL (32.4-35.8); MEAN PLATELET VOLUME 10.7 fL (7.4-10.4); MONOCYTES % (AUTO) 8 % (2-9); NEUTROPHILS % (AUTO) 64 % (42-75); PLATELET COUNT 296 x10^3/uL (130-400); RED CELL DISTRIBUTION WIDTH 14.7 % (9.6-15.2)
[2021-04-03] MEDS: morphine SULFATE 10 MG/ML, 1ML IVPush PRN (13:42)
[2021-04-03 14:00] VITALS: BP 122/75
[2021-04-03 19:33] VITALS: BP 115/75
[2021-04-04 00:50] VITALS: BP 144/82
[2021-04-04] MEDS: AMPICILLIN/SULBACTAM 3 GM in SODIUM CHLORIDE 0.9% 100 ML IV SCH ×4 (05:20→22:37)
[2021-04-04 07:20] VITALS: BP 114/73
[2021-04-04] MEDS: ASCORBIC ACID 250 MG TAB PO SCH ×2 (08:48→16:29)
[2021-04-04] MEDS: ENOXAPARIN 120MG/0.8ML SQ SCH ×2 (08:48→20:27)
[2021-04-04] MEDS: DEXAMETHASONE 4 MG/ML, 5ML IVPush SCH (08:48)
[2021-04-04] MEDS: ZINC SULFATE 220 MG CAPSULE PO SCH (08:48)
[2021-04-04] MEDS: CHOLECALCIFEROL 1,000 UNIT TABLET PO SCH (08:48)
[2021-04-04] MEDS: THIAMINE 100MG TABLET PO SCH (08:48)
[2021-04-04] MEDS: LAMOTRIGINE 200 MG TABLET PO SCH ×2 (08:49→20:27)
[2021-04-04] MEDS: FUROSEMIDE 40 MG/4 ML IV SCH ×2 (08:49→16:29)
[2021-04-04 11:04] LABS: CLOSTRIDIUM DIFFICILE ANTIGEN NEGATIVE; CLOSTRIDIUM DIFFICILE TOXIN NEGATIVE (Negative)
[2021-04-04 11:37] LABS: BASOPHILS % (AUTO) 0 % (0-1); EOSINOPHILS % (AUTO) 0 % (1-7); LYMPHOCYTES % (AUTO) 8 % (22-44); MEAN CORPUSCULAR HEMOGLOBIN 29.9 pg (27.0-34.8); MEAN CORPUSCULAR HGB CONC 32.8 g/dL (32.4-35.8); MONOCYTES % (AUTO) 8 % (2-9); NEUTROPHILS % (AUTO) 84 % (42-75); PLATELET COUNT 263 x10^3/uL (130-400); RED BLOOD COUNT 5.27 x10^6/uL (3.82-5.3); RED CELL DISTRIBUTION WIDTH 14.6 % (9.6-15.2)
[2021-04-04 12:19] VITALS: BP 127/78
[2021-04-04 19:57] VITALS: BP 131/81
[2021-04-05 00:59] VITALS: BP 130/80
[2021-04-05] MEDS: AMPICILLIN/SULBACTAM 3 GM in SODIUM CHLORIDE 0.9% 100 ML IV SCH ×4 (05:00→22:57)
[2021-04-05 05:24] LABS: BASOPHILS % (AUTO) 0 % (0-1); EOSINOPHILS % (AUTO) 0 % (1-7); LYMPHOCYTES % (AUTO) 21 % (22-44); MEAN CORPUSCULAR HEMOGLOBIN 30.4 pg (27.0-34.8); MEAN CORPUSCULAR HGB CONC 33.3 g/dL (32.4-35.8); MEAN PLATELET VOLUME 11.1 fL (7.4-10.4); MONOCYTES % (AUTO) 11 % (2-9); NEUTROPHILS % (AUTO) 68 % (42-75); PLATELET COUNT 242 x10^3/uL (130-400); RED CELL DISTRIBUTION WIDTH 14.7 % (9.6-15.2)
[2021-04-05 05:37] LABS: ALANINE AMINOTRANSFERASE 68 U/L (12-78); ALBUMIN 2.9 g/dL (3.4-5.0); CHLORIDE 100 mmol/L (98-107)
[2021-04-05 05:40] LABS: ALKALINE PHOSPHATASE 71 U/L (45-117); ANION GAP 9 mmol/L (5-15); BILIRUBIN,TOTAL 0.6 mg/dL (0.2-1.0); CREATININE 0.74 mg/dL (0.55-1.02); TOTAL PROTEIN 7.1 g/dL (6.4-8.2)
[2021-04-05 07:56] VITALS: BP 110/65
[2021-04-05] MEDS: FUROSEMIDE 40 MG/4 ML IV SCH (08:51)
[2021-04-05] MEDS: LAMOTRIGINE 200 MG TABLET PO SCH ×2 (08:51→22:12)
[2021-04-05] MEDS: ENOXAPARIN 120MG/0.8ML SQ SCH (08:52)
[2021-04-05] MEDS: ZINC SULFATE 220 MG CAPSULE PO SCH (08:52)
[2021-04-05] MEDS: THIAMINE 100MG TABLET PO SCH (08:52)
[2021-04-05] MEDS: CHOLECALCIFEROL 1,000 UNIT TABLET PO SCH (08:52)
[2021-04-05] MEDS: DEXAMETHASONE 4 MG/ML, 5ML IVPush SCH (09:00)
[2021-04-05] MEDS ORDERED: POTASSIUM CHLORIDE 20 MEQ TAB.ER.PRT PO ONE (09:00)
[2021-04-05] MEDS ORDERED: DEXAMETHASONE 4 MG/ML, 1ML ONE (09:01)
[2021-04-05] MEDS: ASCORBIC ACID 250 MG TAB PO SCH ×2 (09:58→17:24)
[2021-04-05 12:26] VITALS: BP 129/78
[2021-04-05] MEDS: RIVAROXABAN 15 MG TABLET PO SCH (17:25)
[2021-04-05 20:16] VITALS: BP 129/84
[2021-04-06 00:26] VITALS: BP 135/81
[2021-04-06] MEDS: AMPICILLIN/SULBACTAM 3 GM in SODIUM CHLORIDE 0.9% 100 ML IV SCH ×4 (05:02→22:59)
[2021-04-06 06:25] LABS: ANION GAP 7 mmol/L (5-15); CALCIUM 8.2 mg/dL (8.5-10.1); CHLORIDE 107 mmol/L (98-107); CREATININE 0.77 mg/dL (0.55-1.02)
[2021-04-06 07:58] VITALS: BP 117/74
[2021-04-06] MEDS: ASCORBIC ACID 250 MG TAB PO SCH ×2 (08:20→17:40)
[2021-04-06] MEDS: CHOLECALCIFEROL 1,000 UNIT TABLET PO SCH (08:20)
[2021-04-06] MEDS: RIVAROXABAN 15 MG TABLET PO SCH ×2 (08:20→17:40)
[2021-04-06] MEDS: LAMOTRIGINE 200 MG TABLET PO SCH ×2 (08:21→21:52)
[2021-04-06] MEDS: THIAMINE 100MG TABLET PO SCH (08:21)
[2021-04-06] MEDS: ZINC SULFATE 220 MG CAPSULE PO SCH (08:26)
[2021-04-06] MEDS ORDERED: POTASSIUM CHLORIDE 20 MEQ TAB.ER.PRT PO ONE (09:00)
[2021-04-06 13:38] VITALS: BP 126/77
[2021-04-06 18:53] VITALS: BP 134/76
[2021-04-07 01:20] VITALS: BP 102/65
[2021-04-07] MEDS: AMPICILLIN/SULBACTAM 3 GM in SODIUM CHLORIDE 0.9% 100 ML IV SCH ×2 (05:19→11:06)
[2021-04-07 06:41] LABS: CHLORIDE 109 mmol/L (98-107)
[2021-04-07 06:42] LABS: BASOPHILS % (AUTO) 1 % (0-1); EOSINOPHILS % (AUTO) 0 % (1-7); LYMPHOCYTES % (AUTO) 26 % (22-44); MEAN CORPUSCULAR HEMOGLOBIN 30.1 pg (27.0-34.8); MEAN CORPUSCULAR HGB CONC 32.9 g/dL (32.4-35.8); MEAN PLATELET VOLUME 11.2 fL (7.4-10.4); MONOCYTES % (AUTO) 11 % (2-9); NEUTROPHILS % (AUTO) 62 % (42-75); PLATELET COUNT 198 x10^3/uL (130-400); RED CELL DISTRIBUTION WIDTH 14.7 % (9.6-15.2)
[2021-04-07 06:48] LABS: ANION GAP 7 mmol/L (5-15); CALCIUM 8.3 mg/dL (8.5-10.1)
[2021-04-07 07:54] VITALS: BP 117/75
[2021-04-07] MEDS: RIVAROXABAN 15 MG TABLET PO SCH (10:55)
[2021-04-07] MEDS: ASCORBIC ACID 250 MG TAB PO SCH (10:55)
[2021-04-07] MEDS: LAMOTRIGINE 200 MG TABLET PO SCH (10:56)
[2021-04-07] MEDS: CHOLECALCIFEROL 1,000 UNIT TABLET PO SCH (10:56)
[2021-04-07] MEDS: THIAMINE 100MG TABLET PO SCH (10:56)
[2021-04-07] MEDS: ZINC SULFATE 220 MG CAPSULE PO SCH (10:56)
[2021-04-07] MEDS: MORPHINE SULFATE 4 MG/ML, 1ML IVPush PRN (11:06)
[2021-04-07] MEDS ORDERED: PRED20TA PO (11:14)
[2021-04-07] MEDS ORDERED: RIVA20TA PO (11:14)
[2021-04-07] MEDS ORDERED: AMOX1TAB12 PO (11:14)
[2021-04-07] MEDS ORDERED: RIVA15TA PO (11:14)
[2021-04-07] MEDS ORDERED: HYDR-2214 PO (11:17)
[2021-04-07 12:45] VITALS: BP 122/77
[2021-04-07] MEDS ORDERED: AMOXICILLIN/CLAV 875-125MG TABLET PO SCH (18:00)
[2021-04-26] MEDS ORDERED: RIVAROXABAN 20 MG TABLET PO SCH (17:00)
== END 2021-04-07 15:10 | DRG 853 ==
LOC: ED 21:57 → EDIP 23:38 → 3N 03-22 00:49
PROVIDERS: ADMIT Family Medicine; ATTEND Family Medicine
PROC: 0KBT0ZZ Excision of Left Lower Leg Muscle, Open Approach (ICD-10-PCS; principal; 2021-03-24 20:05)
PROC: XW033E5 Introduction of Remdesivir Anti-infective into Peripheral Vein, Percutaneous Approach, New Technology Group 5 (ICD-10-PCS; 2021-03-26)
DX: A41.9 Sepsis, unspecified organism (principal); U07.1 COVID-19; J12.82 Pneumonia due to coronavirus disease 2019; J96.01 Acute respiratory failure with hypoxia; I50.33 Acute on chronic diastolic (congestive) heart failure; I26.99 Other pulmonary embolism without acute cor pulmonale; L03.116 Cellulitis of left lower limb; Z68.42 Body mass index [BMI] 45.0-49.9, adult; D68.69 Other thrombophilia; L02.416 Cutaneous abscess of left lower limb; T87.44 Infection of amputation stump, left lower extremity; E66.01 Morbid (severe) obesity due to excess calories; E88.09 Other disorders of plasma-protein metabolism, not elsewhere classified; G40.909 Epilepsy, unspecified, not intractable, without status epilepticus; F12.90 Cannabis use, unspecified, uncomplicated; G47.33 Obstructive sleep apnea (adult) (pediatric); Y83.5 Amputation of limb(s) as the cause of abnormal reaction of the patient, or of later complication, without mention of misadventure at the time of the procedure; Z87.442 Personal history of urinary calculi; Z90.49 Acquired absence of other specified parts of digestive tract
CPT/HCPCS: 36415; 71045; 71275; 80048; 80053; 82550; 82728; 83615; 83735; 84703; 85025; 85379; 85651; 87040; 87070; 87075; 87077; 87186; 87205; 87324; 87635; 96365; 96366; 96367; 96375; 99283; G0378; J0295; J0456; J1100; J1650; J1940; J2405; J2704; J3010; J3370; J3480; Q9967; U0005; A9575; J0330; J2060; J2270; J7030; J7040; J7050; J7512; U0003

== ENCOUNTER 2021-04-07 16:42 | Emergency (ER) | payer MEDICARE ==
[~2021-04-07] VITALS: Ht 157.5 cm; Wt 124.0 kg
[~2021-04-07 16:42] MED LIST changes: +AMOX1TAB12 PO; +HYDR-2214 PO; +LAMO200T49 PO; +PRED20TA PO; +RIVA15TA PO; +RIVA20TA PO
[2021-04-07] MEDS ORDERED: PLEASE ENTER HEIGHT AND WEIGHT MC SCH (18:00)
[2021-04-07] MEDS ORDERED: LAMOTRIGINE 200 MG TABLET PO ONE (18:00)
--- NOTE | 2021-04-07 18:21 | NUR ---
steam engineer note: Pt to room from [facility].
[2021-04-07 18:34] LABS: MEAN CORPUSCULAR HGB CONC 32.7 g/dL (32.4-35.8); MEAN PLATELET VOLUME 11.2 fL (7.4-10.4); PLATELET COUNT 196 x10^3/uL (130-400); RED BLOOD COUNT 4.62 x10^6/uL (3.82-5.3)
[2021-04-07 18:44] LABS: ALBUMIN 2.6 g/dL (3.4-5.0); ANION GAP 2 mmol/L (5-15); CALCIUM 8.5 mg/dL (8.5-10.1); CHLORIDE 108 mmol/L (98-107)
--- NOTE | 2021-04-07 18:47 | NUR ---
AMA FROM WOUND CARE WHERE PATIENT HAD WITNESSED SEIZURE (DAILY OCCURENCE) SINCE PATIENT WAS 16 MONTHS OLD [facility] REPORTS PATIENT WAS POST ICTAL, NOT INCONTINENT HAS BEEN COMPLIANT WITH LAMICTAL ( TOOK HER DOSE THIS AM) NEURO EXAM UNREMARKABLE AT THIS TIME PROVIDED WITH MEAL TRAY SEIZURE PRECAUTIONS PLACED TO MEDICATE SHORTLY
[2021-04-07 18:48] LABS: ALANINE AMINOTRANSFERASE 70 U/L (12-78); ALKALINE PHOSPHATASE 74 U/L (45-117); BILIRUBIN,TOTAL 0.5 mg/dL (0.2-1.0); CREATININE 0.74 mg/dL (0.55-1.02); TOTAL PROTEIN 6.8 g/dL (6.4-8.2)
--- NOTE | 2021-04-07 18:50 | NUR ---
nani requested from pharmacy
--- NOTE | 2021-04-07 18:58 | NUR ---
SEIZURE PRECAUTIONS IN PLACE. PT EATING SANDWHICH
--- NOTE | 2021-04-07 18:58 | NUR ---
REPORT FROM CATE XAVIER.
[2021-04-07 19:33] LABS: <RBC MORPHOLOGY> NORMAL; BAND#(MANUAL) 0.39 x10^3/uL; BANDS%(MANUAL) 3 % (0-7); LYMPHS% (MANUAL) 7 % (22-44); MONOS#(MANUAL) 0.39 x10^3/uL (0.3-2.7); MONOS% (MANUAL) 3 % (2-9); SEG#(MANUAL) 11.22 x10^3/uL (1.8-6.8); SEGS% (MANUAL) 87 % (42-75)
[2021-04-07 19:34] LABS: <PLATELET ESTIMATE> ADEQUATE; LARGE PLATELETS 1+
[2021-04-07 21:46] VITALS: BP 133/81
--- NOTE | 2021-04-07 21:48 | NUR ---
Patient given discharge instructions and they have confirmed that they understand the instructions. pt able to transfer self to [facility] for transfer back to snf. No personal belongings left in room
== END 2021-04-07 21:50 ==
LOC: ED 17:00
DX: G40.909 Epilepsy, unspecified, not intractable, without status epilepticus (principal)
CPT/HCPCS: 36415; 80053; 85025; 99283